=== PATIENT | male | born 1945 | race Caucasian/White ===

== ENCOUNTER 2019-09-14 17:28 | Emergency (ER) | payer MEDICARE ==
[~2019-09-14] VITALS: Ht 182.9 cm; Wt 78.0 kg
[2019-09-14 18:44] LABS: IMMATURE GRANULOCYTES 0.5 % (0.0-5.0); MEAN CORPUSCULAR HGB 29.9 pG CALC (26.0-32.0); MEAN CORPUSCULAR HGB CONC 31.5 g/L CALC (32.0-36.0); NEUT# 12.45 thou/uL (1.82-7.42); RED BLOOD COUNT 3.01 mill/uL (4.70-6.10); RED CELL DISTRI WIDTH 13.8 % (11.5-15.5)
[2019-09-14 18:45] LABS: HEMATOCRIT 28.6 % (39.0-50.0)
[2019-09-14 19:05] LABS: AMYLASE 47 u/l (30-110); LIPASE 41 u/l (23-300)
[2019-09-14 19:07] LABS: ACT PARTIAL THROMBO TIME 20.4 SECONDS (20.0-32.5); ALBUMIN 3.5 g/dL (3.2-5.0); ALKALINE PHOSPHATASE 43 u/l (38-126); ANION GAP 14 (6-22 (CALC)); BILIRUBIN, TOTAL 0.6 mg/dL (0.0-1.4); BUN 62 mg/dL (8-23); BUN/CREATININE RATIO 51 (12-20 (CALC)); CARBON DIOXIDE 22 mmol/l (22-30); CHLORIDE 108 mmol/l (95-108); CREATININE 1.2 mg/dL (0.7-1.3); GFR 59 ML/MIN (>=60 (CALC)); GFR FOR AFR.AMER. > 60 ML/MIN (>=60 (CALC)); POTASSIUM 4.2 mmol/l (3.5-5.1); PROTHROMBIN TIME 10.2 SECONDS (9.0-12.5); SGOT/AST 21 u/l (19-48); SODIUM 140 mmol/l (137-146)
[2019-09-14 21:43] VITALS: BP 102/60
[2019-09-14 21:53] LABS: URINE BILIRUBIN - DIPSTICK NEGATIVE (NEGATIVE); URINE BLOOD DIPSTICK TRACE-INTACT (NEGATIVE); URINE COLOR YELLOW; URINE GLUCOSE - DIPSTICK NEGATIVE (NEGATIVE); URINE KETONE NEGATIVE (NEGATIVE); URINE LEUK ESTERASE NEGATIVE (NEGATIVE); URINE NITRITE - DIPSTICK NEGATIVE (Negative); URINE PROTEIN - DIPSTICK NEGATIVE (NEG-TRACE); URINE UROBILINOGEN - DIPSTICK 0.2 E.U./dL (0.2)
== END 2019-09-14 21:56 ==
LOC: ED 17:28
PROVIDERS: Emergency Medicine
DX: K92.0 Hematemesis (principal); K92.1 Melena; D64.9 Anemia, unspecified; I10 Essential (primary) hypertension; Z95.2 Presence of prosthetic heart valve
CPT/HCPCS: Q9967; S0164

== ENCOUNTER 2022-09-02 15:49 | Emergency (ER) | payer MEDICARE, OTHER ==
[~2022-09-02] VITALS: Ht 182.9 cm; Wt 81.8 kg
[2022-09-02] MEDS ORDERED: KEFLEX500 MG PO (22:23)
[2022-09-02 22:25] VITALS: BP 169/88
== END 2022-09-02 22:30 | disposition home or self-care (01) ==
LOC: ED 15:49
PROC: 3E0T3BZ Introduction of Anesthetic Agent into Peripheral Nerves and Plexi, Percutaneous Approach (ICD-10-PCS; principal; 2022-09-02)
DX: S60.452A Superficial foreign body of right middle finger, initial encounter (principal); I10 Essential (primary) hypertension; X58.XXXA Exposure to other specified factors, initial encounter; Y93.89 Activity, other specified; Y92.009 Unspecified place in unspecified non-institutional (private) residence as the place of occurrence of the external cause; Z95.2 Presence of prosthetic heart valve